=== PATIENT | male | born 1955 | race Caucasian/White ===

== ENCOUNTER 2016-10-12 09:14 | Day surgery (SDC) | payer BC ==
[2016-10-10 10:21] VITALS: BMI 21.7
[~2016-10-12 09:14] MED LIST: LACTATED RINGERS 1,000 ML IV SCH; LIDOCAINE 1% 20 ML VIAL (10MG/ML) FOR IV START INTRADERMA PRN
[2016-10-12 10:22] VITALS: TEMP 97.7
[2016-10-12] MEDS ORDERED: LIDOCAINE 1% 20 ML VIAL (10MG/ML) FOR IV START INTRADERMA ONE (10:22)
[2016-10-12] MEDS ORDERED: PROPOFOL 10 MG/ML 20 ML VIAL IV ONE (11:12)
[2016-10-12] MEDS ORDERED: IV FLUID CONTINUATION 1,000 ML IV ONE (11:21)
[2016-10-12 11:24] VITALS: PULSE 75; RESP 18
--- NOTE | 2016-10-12 11:37 | P.PCN ---
Date of Procedure: 10/12/16 Preoperative Diagnosis: Postoperative Diagnosis: Procedure(s) Performed: BRIEF HISTORY: Patient is a 61-year-old, pleasant, white male, scheduled for an upper endoscopy as part of evaluation of intermittent episodes of nausea vomiting for the last 2 weeks duration and also had 1 episode of coffee-ground emesis. He is hence scheduled for an upper endoscopy to evaluate further.. PROCEDURE PERFORMED: Esophagogastroduodenoscopy with biopsy. PREOPERATIVE DIAGNOSIS: Intermittent episodes of nausea vomiting and coffee- ground emesis. IV sedation per anesthesia. PROCEDURE: After informed consent was obtained, the patient was brought into the endoscopy unit. IV sedation was administered by Anesthesia under continuous monitoring. Initially the Olympus GIF-140 video endoscope was inserted into the mouth. Esophagus intubated without any difficulty. It was gradually advanced into the stomach and duodenum and carefully examined. The bulb and the second part of the duodenum appeared normal. The scope at this time was withdrawn to the stomach, adequately insufflated with air, and upon careful examination, mucosa of the antrum, had mild gastritis and biopsies were done from this area. In the proximal body of the stomach there was a 5 mm polyp that was removed by biopsy. The rest of the body, cardia and the fundus appeared normal. The scope was then withdrawn into the esophagus. Small hiatal hernia noted. The GE junction was located at 39 cm from the incisors. The esophagus appeared normal. There were 2 superficial erosions noted at the GE junction consistent with LA grade B reflux esophagitis and the patient tolerated the procedure well. IMPRESSION: 1. LA grade B reflux esophagitis. 2. Small hiatal hernia. 3. 5 mm gastric polyps status post biopsy 4. Mild antral gastritis. RECOMMENDATIONS: The findings of this examination were discussed with the patient as well as his family. He was advised to follow with the biopsy results. In the meantime he will continue with Protonix 40 mg daily and follow antireflux measures. Implants: Indications for Procedure: Operative Findings: Description of Procedure:
[2016-10-12 11:44] VITALS: BP 105/69
== END 2016-10-12 12:26 | disposition home or self-care (01) ==
LOC: ORWHC2ENDO 09:14
PROVIDERS: ATTEND Internal Medicine Gastroenterology
DX: K31.7 Polyp of stomach and duodenum (principal); K29.70 Gastritis, unspecified, without bleeding; K44.9 Diaphragmatic hernia without obstruction or gangrene; K21.0 Gastro-esophageal reflux disease with esophagitis; Z79.899 Other long term (current) drug therapy
CPT/HCPCS: 88305; 88342; 43239; J2704

== ENCOUNTER → 2018-07-21 | Outpatient (CLI) | payer BC ==
[2018-07-21 11:04] LABS: HCT 47.4 % (39.0-53.0); HGB 15.6 gm/dL (13.0-17.5); MCH 29.7 pg (25.0-35.0); MCHC 32.8 g/dL (31.0-37.0); MCV 90.6 fL (80.0-100.0); Mean Platelet Volume 6.3; Platelet Count 197 k/uL (150-450); RBC 5.24 m/uL (4.30-5.90); RDW 13.2 % (11.5-15.5); WBC 4.3 k/uL (3.8-10.6)
[2018-07-21 16:04] LABS: Albumin 4.4 g/dL (3.80-4.90); Albumin/Globulin Ratio 2.1 (1.60-3.17); Anion Gap 5.4 mmol/L (4.00-12.00); Calcium 9.1 mg/dL (8.7-10.3); Carbon Dioxide 28.6 mmol/L (21.6-31.8); Globulin 2.1 g/dL (1.6-3.3); LDL Cholesterol,Calculated 130.2 mg/dL (0.0-131.0); Potassium 4.9 mmol/L (3.5-5.5); Total Bilirubin 1.7 mg/dL (0.3-1.2); Total Protein 6.5 g/dL (6.2-8.2); VLDL Calculation 18.8 mg/dL (5.00-40.00)
[2018-07-21 16:13] LABS: T4, Free (Free Thyroxine) 0.9 ng/dL (0.80-1.80)
== END | disposition home or self-care (01) ==
LOC: LABWHC1 08:02
PROVIDERS: ATTEND Physician Assistant
DX: Z00.00 Encounter for general adult medical examination without abnormal findings (principal); R53.83 Other fatigue; Z13.220 Encounter for screening for lipoid disorders; Z12.5 Encounter for screening for malignant neoplasm of prostate
CPT/HCPCS: 84439; 80061; 80053; 85027; 82306; 36415; G0103

== ENCOUNTER 2021-06-30 06:46 | Day surgery (SDC) | payer BC ==
[2021-06-29 08:52] VITALS: BMI 23.0
[~2021-06-30 06:46] MED LIST changes: -LIDOCAINE 1% 20 ML VIAL (10MG/ML) FOR IV START INTRADERMA PRN
[2021-06-30 07:16] VITALS: TEMP 96.8
[2021-06-30] MEDS ORDERED: LIDOCAINE 1% INJ 10MG/ML (20 ML MDV) ONE (07:54)
[2021-06-30] MEDS ORDERED: PROPOFOL 10 MG/ML 20 ML VIAL IV ONE (07:54)
[2021-06-30] MEDS ORDERED: GLYCOPYRROLATE 0.2 MG/ML 2 ML VIAL ONE (07:54)
--- NOTE | 2021-06-30 08:15 | P.PCN ---
Date of Procedure: 06/30/21 Procedure(s) Performed: Brief history: Patient is a pleasant 66-year-old white male scheduled for an elective upper endoscopy as well as colonoscopy as a part of evaluation of GERD and screening for colon cancer Procedure performed: Esophagogastroduodenoscopy with biopsy Colonoscopy with snare polypectomy Preoperative diagnosis: GERD Screening for colon cancer Anesthesia: MAC Procedure: After informed consent was obtained from the patient was brought into the endoscopy unit and IV sedation was administered by anesthesia under continuous monitoring. Initially upper endoscopy was done. The Olympus GF 160 video endoscope was inserted inserted into the mouth and esophagus intubated without any difficulty and was gradually advanced into the stomach and duodenum and carefully examined. The bulb and second part of the duodenum appeared normal. The scope was then withdrawn into the stomach adequately insufflated with air and upon careful examination the antrum had mild gastritis and biopsies were done from this area. The body, cardia and fundus appeared normal. The scope was then withdrawn into the esophagus. The GE junction was located at 44 cm to the incisors. there was a short segment of Munoz's esophagus extending 3 mm millimeters proximal to the GE junction which was biopsied. The GE junctionappeared regular with no erythema erosions or ulcerations. Rest of the esophagus appeared normal. Patient tolerated the procedure well. At this time the patient continued to remain sedation. Initial digital rectal examination was normal. Olympus CF 160 video colonoscope was then inserted into the rectum and gradually advanced to the cecum without any difficulty. Careful examination was performed as the scope was gradually being withdrawn. The prep was excellent. The cecum, had a 1 cm polyp that was removed by snare polypectomy. The ascending colon, transverse colon, descending colon, sigmoid colon and rectum appeared normal. The sigmoid: There was a 3 mm polyp removed by snare polypectomy. Retroflexion was performed in the rectum and no lesions were noted. Patient tolerated the procedure well. Impression: 1. Upper endoscopy revealed mild antral gastritis and short segment Munoz's esophagus 2. Colonoscopy revealed 1 cm cecal polyp status post polypectomy and a 3 mm sigmoid colon polyp status post polypectomy Recommendations: Findings of this examination were discussed with the patient as well as and his family. He was advised to follow with the biopsy results. If the biopsy confirms the presence of Munoz's esophagus he can have a repeat upper endoscopy in 3 years. And have a repeat colonoscopy in 3 years.
[2021-06-30 08:23] VITALS: RESP 16
[2021-06-30 08:49] VITALS: BP 119/80; PULSE 76
== END 2021-06-30 09:10 | disposition home or self-care (01) ==
LOC: ORWHC2ENDO 06:46
PROVIDERS: ATTEND Internal Medicine Gastroenterology
DX: Z12.11 Encounter for screening for malignant neoplasm of colon (principal); D12.5 Benign neoplasm of sigmoid colon; K63.5 Polyp of colon; K29.50 Unspecified chronic gastritis without bleeding; K21.9 Gastro-esophageal reflux disease without esophagitis; E78.5 Hyperlipidemia, unspecified; Z79.899 Other long term (current) drug therapy; K22.70 Barrett's esophagus without dysplasia
CPT/HCPCS: 88305; 45385; 43239; J2001; J2704

== ENCOUNTER → 2022-11-01 | Outpatient (CLI) | payer MEDICARE ==
--- NOTE | 2022-11-01 18:16 | US ---
EXAMINATION TYPE: US carotid duplex BILAT DATE OF EXAM: 11/01/2022 COMPARISON: NONE CLINICAL INDICATION: Male, 67 years old with history of I65.23 CAROTID STENOSIS; Hand eye coordinatio n feels off, no h/o stroke TECHNIQUE: Carotid duplex ultrasound examination. Indirect Doppler criteria was utilized. 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 Correla te to exclude any underlying hypertension. There may be some component of turbulent vascular flow rat her than a true arterial stenosis. Criteria for Assigning % of Stenosis / Diameter reduction (Estimation based on the indirect measurements of the internal carotid artery velocities (ICA PSV). 1. Normal (no stenosis)=ICA PSV < 125 cm/s: ratio < 2.0: ICA EDV<40 cm/s. 2. Less than 50% stenosis=ICA PSV < 125 cm/s: ratio < 2.0: ICA EDV<40 cm/s. 3. 50 to 69% stenosis=ICA PSV of 125 to 230 cm/s: ration 2.0 ? 4.0: ICA EDV 40-100 cm/s. 4. Greater than 70% stenosis to near occlusion= ICA PSV > 230 cm/s: ratio > 4.0: ICA EDV > 100 cm/s. 5. Near occlusion= ICA PSV velocities may be low or undetectable: variable ratio and ICA EDV. 6. Total occlusion=unable to detect flow.
== END | disposition home or self-care (01) ==
LOC: RADUSWWP 10:43
PROVIDERS: ATTEND Internal Medicine
DX: I65.23 Occlusion and stenosis of bilateral carotid arteries (principal)
CPT/HCPCS: 93880

== ENCOUNTER → 2022-11-01 | Outpatient (CLI) | payer MEDICARE ==
--- NOTE | 2022-11-01 16:57 | MR ---
EXAMINATION TYPE: MR brain wo/w con DATE OF EXAM: 11/01/2022 2:55 PM COMPARISON: NONE HISTORY: Hand eye coordination trouble, tremor CONTRAST: Patient received 7.5 mL intravenous Gadavist gadolinium contrast. Multiplanar and multispin-echo imaging of the brain was performed . Pre and post contrast enhanced i mages are obtained. The ventricles, basal cisterns and sulci overlying the cerebral convexities are mildly enlarged. There is evidence of mild periventricular white matter ischemic demyelination. Remote deep white matter insults are also noted. No acute edema is seen on diffusion weighted imaging. There is no evidence for midline shift or mass effect. Acute intracranial hemorrhage or extra-axial collection is not evident. No enhancing lesions are seen. The paranasal sinuses and mastoid air cells are well-aerated. IMPRESSION: Age-related atrophic and chronic small vessel ischemic change. No acute intracranial process at this time. No enhancing lesions are seen.
== END | disposition home or self-care (01) ==
LOC: RADMRIMAIN 11:22
PROVIDERS: ATTEND Internal Medicine
DX: G31.1 Senile degeneration of brain, not elsewhere classified (principal); I67.82 Cerebral ischemia; R25.1 Tremor, unspecified
CPT/HCPCS: 70553; A9585

== ENCOUNTER → 2023-05-21 | Outpatient (CLI) | payer MEDICARE ==
[2023-05-21 11:45] LABS: African American GFR (CKD) >90 (>60 ml/min/1.73 sqM); Blood Urea Nitrogen 24 mg/dL (9-20); Non-African American GFR(CKD) >90 (>60 ml/min/1.73 sqM)
--- NOTE | 2023-05-21 14:00 | CT ---
EXAMINATION TYPE: CT angio neck DATE OF EXAM: 05/21/2023 HISTORY: abnormal US, carotid stenosis COMPARISON: 11/01/[address] DLP: 270.5 mGycm. Automated Exposure Control for Dose Reduction was Utilized. TECHNIQUE: CTA scan of the neck is performed with IV Contrast, patient injected with 65 mL of Isovue 370, axial images are obtained, coronal and sagittal reformatted images are reviewed. Three-D recons tructed images are created on an independent workstation and reviewed. Source images are reviewed. FINDINGS: Carotid/Vascular Structures: There is a 3 vessel arch. Common carotid arteries bifurcate into internal and external carotid arteries without significant deedee w limiting stenosis. Minimal plaquing is present at the bifurcations. Vertebral arteries are codominant. Internal carotid arteries and vertebral arteries are patent to the skull base. Current CTA through the carotid bifurcations without significant flow-limiting stenosis appears less then what is suggested by the prior ultrasound. IMPRESSION: 1. No significant flow-limiting stenosis bilateral carotid bifurcations. Minimal plaquing is at the l eft internal carotid artery origin. NASCET criteria was used in interpretation of this exam?
== END | disposition home or self-care (01) ==
LOC: RADCTMAIN 10:52
PROVIDERS: ATTEND Internal Medicine
DX: I65.22 Occlusion and stenosis of left carotid artery (principal); R93.89 Abnormal findings on diagnostic imaging of other specified body structures
CPT/HCPCS: 82565; 84520; 70498; 36415; Q9967

== ENCOUNTER → 2024-01-21 | Outpatient (CLI) | payer MEDICARE ==
--- NOTE | 2024-01-21 11:26 | US ---
EXAMINATION TYPE: US liver DATE OF EXAM: 01/21/2024 COMPARISON: NONE CLINICAL INDICATION: Male, 68 years old with history of R17 ELEVATED BILIRUBIN; Elevated bilirubin TECHNIQUE: Grayscale and color Doppler imaging of the right upper quadrant. FINDINGS: EXAM MEASUREMENTS: Liver Length: 15.6 cm Gallbladder Wall: 0.25 cm CBD: 0.72 cm Right Kidney: 11.0 x 5.6 x 4.3 cm AIRPLANE DISPATCH CLERK NOTES: Exam is limited due to gas Pancreas: Obscured by bowel gas Liver: Appears wnl Gallbladder: Measures 10.2 cm in length. *Internal echoes seen - question some sludge within Evidence for sonographic Guzman's sign: No CBD: Dilated Right Kidney: No hydronephrosis or nephrolithiasis. IMPRESSION: 1. Gallbladder is distended with suspected gallbladder sludge or tiny gallstones. CBD is slightly dil ated 7 mm. Distal CBD abnormality not excluded. Correlate clinically. [facility], , 01/21/2024 11:23 AM
== END | disposition home or self-care (01) ==
LOC: RADUSWWP 08:31
PROVIDERS: ATTEND Internal Medicine
DX: R17 Unspecified jaundice
CPT/HCPCS: 76705

== ENCOUNTER → 2024-04-03 | Outpatient (CLI) | payer MEDICARE ==
--- NOTE | 2024-04-03 12:50 | MR ---
MRCP: Elevated bilirubin. COMPARISON: None. TECHNIQUE: MRCP was performed according to protocol. FINDINGS: There are no filling defects within the gallbladder, biliary ducts and pancreatic duct. There is no hepatic mass. The pancreas and spleen are unremarkable. The bowel loops are normal. IMPRESSION: Unremarkable MRCP with no definite abnormality of the gallbladder or biliary tree. [facility], Workstation: [facility], 04/03/2024 12:48 PM
== END | disposition home or self-care (01) ==
LOC: RADMRIMAIN 05:54
PROVIDERS: ATTEND Surgery
DX: K83.8 Other specified diseases of biliary tract (principal)
CPT/HCPCS: 74181